=== PATIENT | male | born 1975 | race Caucasian/White ===

== ENCOUNTER 2017-10-04 11:26 | Emergency (ER) | payer OTHER ==
[2017-10-04 11:31] VITALS: O2SAT 96
--- NOTE | 2017-10-04 12:19 | EDPHY ---
H & P Stated Complaint: L ant lower rib pain after fall last evening;no resp diff Time Seen by Provider: 10/04/17 12:19 - Personal History Current Tetanus Diphtheria and Acellular Pertussis (TDAP): No - Medical/Surgical History Other PMH: neg - Social History Smoking Status: Never smoked Constitutional: Initial Vital Signs Temperature (C) 36.8 C 10/04/17 11:27 Heart Rate 108 H 10/04/17 11:27 Respiratory Rate 18 10/04/17 11:27 Blood Pressure 153/96 H 10/04/17 11:27 O2 Sat (%) 96 10/04/17 11:27 O2 Delivery Mode Room Air Allergies/Adverse Reactions: No Known Allergies Allergy (Unverified 10/04/17 11:31) Home Medications: Medication Instructions Recorded Doxepin HCl [SINEquan 10 MG (*)] 10 mg PO HS 10/04/17 Medical Decision Making ED Course/Re-evaluation: CHIEF COMPLAINT: Left rib pain HISTORY OF PRESENT ILLNESS: 42-year-old gentleman who admits to consuming significant amounts of alcohol. He is an alcoholic and a binge drinker yet highly functional according to him. He would like some help with his withdrawal symptoms. Yesterday he was chasing deer out of his yard and he tripped and fell on a log while intoxicated. He hurt his left lower ribs. He denies any other injuries. REVIEW OF SYSTEMS: A 10 point review of systems was performed and is negative with the exception of the elements mentioned in the history of present illness. PHYSICAL EXAM: HR, BP, O2 Sat, RR. Temp noted General Appearance: Alert, well hydrated, appropriate, and non-toxic appearing. Head: Atraumatic without scalp tenderness or obvious injury Eyes: Pupils equal, round, reactive to light and accommodation, EOMI, no trauma , no injection. Ears: Clear bilaterally, no perforation, normal landmarks Nose: Atraumatic, no rhinorrhea, clear. Throat: There is no erythema or exudates, no lesions, normal tonsils, mucus membranes moist. Neck: Supple, 2+ carotid upstroke, nontender, no lymphadenopathy. Respiratory: No retractions, no distress, no wheezes, and no accessory muscle use. Lungs are clear to auscultation bilaterally. Cardiovascular: Regular rate and rhythm, no murmurs, rubs, or gallops. Bilateral carotid, radial, dorsalis pedis, and posterior tibial pulses intact. Good capillary refill all extremities. Gastrointestinal: Abdomen is soft, nontender, non-distended, no masses, no rebound, no guarding, no peritoneal signs. Musculoskeletal: Pain to palpation over the left lower ribs. No chest wall contusion. No other evidence of injury. Good chest excursion with normal breath sounds. Normal active ROM of all extremities, atraumatic. Neurological: Alert, appropriate, and interactive. The patient has normal DTRs and non-focal cranial nerves, motor, sensory, and cerebellar exam. Skin: No rashes, good turgor, no nodules on palpation. Past medical history: Chronic alcoholism Past surgical history: Noncontributory Family history: Noncontributory Social history: Single, employed, does not abuse drugs or tobacco but is a binge recurrence alcoholic DIAGNOSTICS/PROCEDURES/CRITICAL CARE TIME: Discussed with patient but he does not want DIFFERENTIAL DIAGNOSIS: Includes but is not limited to: Rib fracture, rib contusion, chest wall contusion, musculoskeletal injury, cracked rib MEDICAL DECISION MAKING: This patient is in no distress. He is a bit tremulous and shaky and he has not had anything to drink since yesterday. He would prefer to use some Librium at home and does not want to [facility] as he states he is currently holding down a job and cannot go to an inpatient recovery. I will provide him with Librium for the next few days. I will also give him ibuprofen. And some Vicodin. I have warned him about the use of Librium ibuprofen and Vicodin with alcohol Departure - Departure Disposition: Home, Routine, Self-Care Clinical Impression: Rib contusion Qualifiers: Encounter type: initial encounter Laterality: left Qualified Code(s): S20.212A - Contusion of left front wall of thorax, initial encounter Alcohol withdrawal Qualifiers: Complication of substance-induced condition: uncomplicated Qualified Code(s): F10.230 - Alcohol dependence with withdrawal, uncomplicated Condition: Good Instructions: Alcohol Intoxication (ED), Abuse of Alcohol (ED), Alcohol Dependence (ED), Alcohol Use Disorder (ED), Rib Contusion (ED) Referrals: ONDINA PHILLIPS [Other] - As per Instructions
--- NOTE | 2017-10-04 12:28 | CPEKG ---
Heart Rate: 80 RR Interval: 750 P-R Interval: 168 QRSD Interval: 88 QT Interval: 360 QTC Interval: 416 P [place]: 46 QRS [place]: 51 T Wave [place]: 42 EKG Severity - NORMAL ECG - EKG Impression: SINUS RHYTHM Electronically Signed By: Heath Archibald 04-Oct-2017 15:18:50
[2017-10-04] MEDS ORDERED: CHLORDIAZEPOXIDE 25MG PREPK#6 BTL TAKEHOME ONE (12:42)
[2017-10-04 13:30] VITALS: BP 125/86; PULSE 89; RESP 16; TEMP 98.4
== END 2017-10-04 13:30 | disposition home or self-care (01) ==
DX: S20.212A Contusion of left front wall of thorax, initial encounter (principal); F10.230 Alcohol dependence with withdrawal, uncomplicated; W01.0XXA Fall on same level from slipping, tripping and stumbling without subsequent striking against object, initial encounter; Y92.007 Garden or yard of unspecified non-institutional (private) residence as the place of occurrence of the external cause; Y99.8 Other external cause status